=== PATIENT | female | born 1950 | race Caucasian/White ===

== ENCOUNTER 2023-06-06 13:05 | Outpatient (CLI) | payer MEDICARE ==
[~2023-06-06 13:05] MED LIST: Iopamidol 300 61% 100 ML VIAL FS ONE
== END 2023-06-06 13:06 | disposition home or self-care (01) ==
LOC: CSHCT 13:05
PROVIDERS: ATTEND Internal Medicine Hematology & Oncology
DX: C18.9 Malignant neoplasm of colon, unspecified (principal); R91.1 Solitary pulmonary nodule; E04.2 Nontoxic multinodular goiter
CPT/HCPCS: 71260; 82565